=== PATIENT | female | born 1995 | race African-American/Black ===

== ENCOUNTER → 2018-04-22 | Day surgery (SDC) | payer BC ==
--- NOTE | 2018-04-19 09:56 | Diagnostic Imaging Report ---
PROCEDURE: X-RAY CHEST, TWO VIEWS COMPARISON: None. INDICATIONS: PREOPERATIVE CHEST XRAY FOR FOOT SURGERY FINDINGS: LUNGS: No consolidations or edema. PLEURA: No effusions or pneumothorax. HEART & MEDIASTINUM: The heart is within normal size-limits. BONES & SOFT TISSUES: No acute findings. CONCLUSION: No acute thoracic abnormality. Dictated by: Tod Rivas M.D. on 04/19/2018 at 10:04 Electronically approved by: Tod Rivas M.D. on 04/19/2018 at 10:04
[~2018-04-22] MED LIST: ACETAMINOPHEN 1000 MG/100 ML IV ONE; BUPIVACAINE HCL 0.5% INJ 30 ML VIAL INJ ONE; CEFAZOLIN SOD 1 GM VIAL ONE; DEXAMETHASONE SOD PHOS INJ 4 MG/ML VIAL ONE; FENTANYL CITRATE/PF 100MCG/2 ML INJ ONE; LIDOCAINE HCL 2% LOCAL INJ 5 ML SDV VIAL INJ ONE; MIDAZOLAM HCL 2 MG/2 ML VIAL ONE; ONDANSETRON HCL INJ 2 MG/ML VIAL ONE; PROPOFOL IV EMULSION 10 MG/ML 20 ML VIAL ONE; SEVOFLURANE INHAL SOLN 250 ML PEN BTL ONE
--- OUTSIDE RECORDS SUMMARY | 2018-04-22 05:08 | XMS REPORT | Continuity of Care Document ---
Author Author [facility] Interface Address Unknown Phone Unavailable Problems Problem Status Onset Date Classification Date Reported Comments Source Body mass index 25-29 - overweight 10/16/2017 Diagnosis 10/16/2017 [facility] Pharyngitis 10/16/2017 Diagnosis 10/16/2017 [facility] Acute suppurative otitis media without spontaneous rupture of ear drum 10/16/2017 Diagnosis 10/16/2017 [facility] Tuberculosis screening 07/25/2017 Diagnosis 07/25/2017 [facility] No current problems or disability Problem 10/16/2017 [facility] Excessive Cerumen in Ear Canal Problem 07/25/2017 [facility] Otalgia Problem 07/25/2017 [facility] Acute Sinusitis Problem 07/25/2017 [facility] Acute Pharyngitis Problem 07/25/2017 [facility] Acute Upper Respiratory Infection Problem 07/25/2017 [facility] Allergic Rhinitis Problem 07/25/2017 [facility] Medications Medication Details Route Status Patient Instructions Ordering Provider Order Date Source Amoxicillin 875 MG / Clavulanate 125 MG Oral Tablet amoxicillin 875 mg-potassium clavulanate 125 mg tablet Take 1 tablet every 12 hours by oral route around the clock for 7 days. Active [facility] Ibuprofen 800 MG Oral Tablet ibuprofen 800 mg tablet Take 1 tablet 3 times a day by oral route. Active [facility] TriNessa Lo 0.18 mg/0.215 mg/0.25 mg-25 mcg tablet TriNessa Lo 0.18 mg/0.215 mg/0.25 mg-25 mcg tablet Take 1 tablet orally once daily at the same time. Active [facility] Purified Protein Derivative of Tuberculin 50 UNT/ML Injectable Solution [Tubersol] Tubersol 5 tub. unit/0.1 mL intradermal injection solution Inject 0.1 mL by intradermal route. Active [facility] Allergies, Adverse Reactions, Alerts Substance Category Reaction Severity Reaction type Status Date Reported Comments Source Immunizations Immunization Date Given Site Status Last Updated Comments Source Results Order Name Results Value Reference Range Date Interpretation Comments Source RESULT negative 10/16/2017 [facility] Vital Signs Vital Sign Value Date Comments Source Diastolic (mm Hg) 74 10/16/2017 [facility] Height 64 10/16/2017 [facility] Systolic (mm Hg) 120 10/16/2017 [facility] Weight 162 10/16/2017 [facility] Encounters Location Location Details Encounter Type Encounter Number Reason For Visit Attending Provider ADM Date DC Date Status Source [place] - [facility] - [id number] DAVE Tay-C: [address] [place] [address], Ph. [id number] Jacob Singh 07/25/2017 [facility] [place] [facility] - [id number] DAVE Cruz-C: [address] [place] [address], Ph. [id number] Landon Kerr 10/16/2017 [facility] Procedures Procedure Code Date Perfomer Comments Source
--- OUTSIDE RECORDS SUMMARY | 2018-04-22 05:08 | XMS REPORT ---
Author Author [facility] Address Unknown Phone Unavailable Care Team Providers Care Peanut Sorter Name Role Phone Khris LOUIS Unavailable Unavailable Problems This patient has no known problems. Allergies, Adverse Reactions, Alerts This patient has no known allergies or adverse reactions. Medications This patient has no known medications. Results Test Description Test Time Test Comments Text Results Atomic Results Result Comments CHEST 2 VIEWS 2018-04-19 10:04:00 [place] [id number] Patient Name: PIERRE GONSALEZ MR #: [id number] : 1995 Age/Sex: 23/F Req #: [id number] [facility] Physician: Ordered by: RYAN LOUIS DPM Report #: [id number] Location: OR Room/Bed: Procedure: [id number] DX/CHEST 2 VIEWS Exam Date: 04/19/18 Exam Time: 0935 REPORT STATUS: Signed PROCEDURE: X-RAY CHEST, TWO VIEWS COMPARISON: None. INDICATIONS: PREOPERATIVE CHEST XRAY FOR FOOT SURGERY FINDINGS: LUNGS: No consolidations or edema. PLEURA: No effusions or pneumothorax. HEART MEDIASTINUM: The heart is within normal size- limits. BONES SOFT TISSUES: No acute findings. CONCLUSION: No acute thoracic abnormality. Dictated by: Saleem Plaza M.D. on 04/19/2018 at 10:04 Electronically approved by: Saleem Plaza M.D. on 04/19/2018 at 10:04 Dictated By: SALEEM PLAZA MD 1004 Transcribed By: SUZETTE on 04/19/18 1004 COPY TO: RYAN LOUIS DPM
--- OUTSIDE RECORDS SUMMARY | 2018-04-22 05:08 | XMS REPORT | Encounter Summary ---
Author Organization Unknown Address [address] [place] [address] Phone [phone] Reason for Visit Medical Complaint Instructions 1. Acute suppurative otitis media without spontaneous rupture of ear drum ear infection (otitis media): care instructions ibuprofen 800 mg tablet amoxicillin 875 mg-potassium clavulanate 125 mg tablet rapid strep group A, throat 2. Pharyngitis sore throat: care instructions 3. Body mass index 25-29 - overweight eating healthy foods: care instructions A healthy lifestyle: care instructions body mass index: care instructions Discussion Note Pt is in no apparent acute distress; Verbalizes understanding of and agreement with all instructions with no questions at this time. Plan of Care Patient Instructions Take all medications as directed. Follow up with your PCP as needed. Seek additional medical care with new or worsening symptoms, or if symptoms do not resolve in 3-4 days. When to seek urgent help See your doctor or seek Emergency Services immediately if you have a sore throat along with any of the following: Difficulty breathing Skin rash Drooling because you cannot swallow Swelling of the neck or tongue Stiff neck or difficulty opening the mouth Underlying chronic illness/medication that may impair your immune system Pain medication Msfp-mmj-jueaaud pain relievers such as acetaminophen (Tylenol) or a nonsteroidal anti-inflammatory agent such as ibuprofen or naproxen (Motrin or Aleve) have been shown to provide fast and effective relief of sore throat pain. Oral steroids are not routinely used because steroids come with (potentially serious) side effects, the benefit in treating sore throat pain is limited, and yylm-osy-uqssmvs treatments help most patients. Oral rinses Salt-water gargles are an old standby for throat pain. It is not clear that salt water works to relieve pain, but it is unlikely to be harmful. Most recipes suggest 1/4 to 1/2 teaspoon (1.5 to 3.0 g) of salt per one cup (8 ounces or 250 mL) of warm water. Sprays Sprays containing topical anesthetics (eg, benzocaine, phenol) are available to treat sore throat. However, such sprays are no more effective than sucking on hard candy. Lozenges A variety of lozenges (cough drops) containing topical anesthetics are available to treat throat pain or relieve dryness. Lozenges may persist longer in the throat than sprays or gargles and, thus, may be more effective for symptom relief [2]. Other treatments Other treatments that may help with throat pain include sipping warm beverages (eg, honey or lemon tea, chicken soup), cold beverages, or eating cold or frozen desserts (eg, ice cream, popsicles). Alternative therapies Health food stores, vitamin outlets, and internet websites offer alternative treatments for relief of sore throat pain. These types of treatments are not recommend due to the risks of contamination with pesticides/herbicides, inaccurate labeling and dosing information, and a lack of studies showing that these treatments are safe and effective. Return to work/school If you have been diagnosed with strep throat, stay home from work or school until you have completed 24 hours of antibiotics. Within 24 hours of beginning antibiotic treatment, you will feel better and will be less contagious. If you have a sore throat (not diagnosed as strep), you may participate in your usual activities as soon as you feel well, though practical prevention measures such as good hand washing and cough etiquette should be observed. Most facilities such as schools and businesses have internal rules governing return to work after illness. Many require 24 hours of no fever without the use of fever reducers such as acetaminophen or ibuprofen. Check with your job or school to find out when you may return per their rules. Thank you for allowing me to participate in your healthcare! Reminders Provider Appointments None recorded. Lab Rapid Strep Group a, Throat 10/16/2017 [facility] Referral None recorded. Procedures None recorded. Surgeries None recorded. Imaging None recorded. Medications Name Start Date amoxicillin 875 mg-potassium clavulanate 125 mg tablet Take 1 tablet every 12 hours by oral route around the clock for 7 days. ibuprofen 800 mg tablet Take 1 tablet 3 times a day by oral route. TriNessa Lo 0.18 mg/0.215 mg/0.25 mg-25 mcg tablet Take 1 tablet orally once daily at the same time. Medications Administered None recorded. Vitals Height Weight BMI Blood Pressure 5 ft 4 in 162 lbs 27.8 kg/m2 120/74 mm[Hg] Lab Results Date Name Specimen Result Interpretation Description Value Range Status Address Rapid Strep Group a, Throat Result negative [facility]: [address] [place] [address] Allergies Code Code System Name Reaction Severity Status Onset NKDA Problems No Known Problems Procedures None recorded. Vaccine List None recorded. Social History Smoking Status Never Smoker Past Encounters 10/16/2017 Acute Suppurative Otitis Media without Spontaneous Rupture of Ear Drum; Pharyngitis; Body Mass Index 25-29 - Overweight Landon Kerr, [employer]-C: [address] [place] [address], Ph. History of Present Illness Throat-Oral Complaint Reported By: Patient HPI: Location: throat. Quality: sore throat, congested. Severity: moderate. Duration: 3 days. Onset/Timing: gradual. Context: no sick contacts, no foreign travel, non-smoker. Associated Symptoms: no fever, no body aches, no sputum production, no shortness of breath, no wheezing, no change in number of pillows needed to sleep at night, no sweats, no significant weight gain, no significant weight loss, no morning cough, no vomiting, no diarrhea, no rash, no nausea, headache, sore throat Notes: ear pain bilaterally, worse on the left Review of Systems:ROS as noted in the HPI Review of Systems Basic Reported By: Patient Physical Exam Adult Basic Reported By: Patient Constitutional: General Appearance: healthy-appearing, well-nourished, well-developed. Level of Distress: NAD. Ambulation: ambulating normally Psychiatric: Mental Status: active and alert. Orientation: to time, to place, to person Eyes: Lids and Conjunctivae: non-injected, no discharge, no pallor. Pupils: PERRLA. Corneas: grossly intact. EOM: EOMI. Lens: clear. Sclerae: non-icteric Tti-Ursq-Qqljk-Throat: Ears: no lesions on external ear, no outer ear tenderness, EACs clear, TM erythematous, TM bulging; right is clear, normal visualization. Hearing: no hearing loss. Nose: no lesions on external nose, nares patent, no septal deviation, nasal passages clear, no sinus tenderness, no nasal discharge. Lips, Teeth, and Gums: no mouth or lip ulcers. Oropharynx: moist mucous membranes, tonsils not enlarged, erythema Neck: Neck: supple, trachea midline, no masses, FROM. Lymph Nodes: no supraclavicular LAD, anterior cervical LAD. Thyroid: no enlargement, non-tender, no nodules Lungs: Respiratory effort: no dyspnea, no tachypnea, no use of accessory muscles, no intercostal retractions. Auscultation: breath sounds normal Cardiovascular: Heart Auscultation: RRR, no murmurs Neurologic: Gait and Station: normal gait, normal station. Sensation: grossly intact Skin: Inspection and palpation: no rash, no lesions
--- OUTSIDE RECORDS SUMMARY | 2018-04-22 05:08 | XMS REPORT | Encounter Summary ---
Author Organization Unknown Address [address] [place] [address] Phone [phone] Reason for Visit Screening - TB Instructions 1. Tuberculosis screening Tubersol 5 tub. unit/0.1 mL intradermal injection solution PPD (purified protein derivative), skin test - Patient was advised to follow-up with [facility] within 48-72 hours. Discussion Note: None recorded. Patient educational handouts: No information available. Plan of Care Patient Instructions RTC in 48-72 for reading. see vis handout for any questions. Reminders Provider Appointments None recorded. Lab PPD (Purified Protein Derivative), Skin Test 07/25/2017 [facility] Referral None recorded. Procedures None recorded. Surgeries None recorded. Imaging None recorded. Medications Name Start Date Tubersol 5 tub. unit/0.1 mL intradermal injection solution Inject 0.1 mL by intradermal route. Medications Administered Name Date Tubersol 5 tub. unit/0.1 mL intradermal injection solution Inject 0.1 mL by intradermal route. [id number] Vitals None recorded. Lab Results None recorded. Allergies Code Code System Name Reaction Severity Status Onset NKDA Problems Name Status Onset Date Source Excessive Cerumen in Ear Canal Active Encounter Otalgia Active Encounter Acute Sinusitis Active Encounter Acute Pharyngitis Active Encounter Acute Upper Respiratory Infection Active Encounter Allergic Rhinitis Active Encounter Procedures None recorded. Vaccine List None recorded. Social History Smoking Status Never Smoker Past Encounters 07/25/2017 Tuberculosis Screening DAVE Tay-C: [address] [place] [address], Ph. History of Present Illness Screening Request - TB Reported By: Patient Screening Request: BCG No prior BCG vaccination. PPD No past history of postive TB skin test (PPD), No previous severe local reaction to TB skin test (PPD). OTHER No prior vaccines within last month Review of Systems Screening - TB Reported By: Patient Symptoms during past year > 2 weeks, NOT associated with specific illness?: unexplained or low grade fever No fever. night sweats No night sweats. unexplained weight loss > 5 lbs No unexplained weight loss. persistent cough No persistent cough. shortness of breath No shortness of breath. coughing up blood (hemoptysis) No coughing up blood (hemoptysis). unusual fatigue No unusual fatigue. loss of appetite No loss of appetite. swollen neck glands No swollen neck glands Physical Exam Screening Reported By: Patient General Appearance: General: well-developed, well-nourished, no acute distress
--- NOTE | 2018-04-22 08:24 | Operative Report ---
DATE OF PROCEDURE: April 22, 2018 PREOPERATIVE DIAGNOSIS: Left hallux valgus. POSTOPERATIVE DIAGNOSIS: Left hallux valgus. PLANNED PROCEDURE: Left Collin bunionectomy with 1st metatarsal osteotomy and internal fixation, left foot. ANESTHESIA: General with a postoperative block consisting of 10 mL of 0.5% Marcaine plain mixed with 1 mL of dexamethasone phosphate. HEMOSTASIS: Pneumatic thigh tourniquet set at 350 mmHg for a total time of approximately 30 minutes. MATERIALS 1. 2-0 Vicryl. 2. 3-0 Vicryl. 3. 4-0 Monocryl. 4. Two 2 mm x 14 mm Synthes cortical bone screws. ESTIMATED BLOOD LOSS: Less than 10 mL. PATHOLOGY: None. PROCEDURE IN DETAIL: Patient was seen in the preoperative waiting room where the correct procedure and site was identified. The patient was brought to the operating room and placed on the operating table in the supine position. General anesthesia was initiated at this time. A well-padded pneumatic tourniquet was placed about the patient's left thigh. The left foot, ankle and leg was scrubbed, prepped and draped in the usual aseptic manner. The left foot, ankle and leg was exsanguinated with an Esmarch bandage, and the pneumatic thigh tourniquet was inflated to 350 mmHg for a total time approximately 30 minutes. Attention was directed to the dorsomedial aspect of the patient's left foot where a 5 cm curvilinear incision was made directly over the 1st metatarsophalangeal joint. The incision was carried through the subcutaneous tissues them from deeper underlying structures. All vital neurovascular structures were identified and retracted medially and laterally, and all bleeders were cauterized or ligated as deemed necessary. At this point, through the same incision a full lateral release was performed consisting of the deep transverse metatarsal ligament, lateral collateral ligament, as well as the fibular sesamoid ligament. The hallux was put through a range of motion and found to be functioning in a more proper anatomic alignment. Attention was then directed back to the 1st metatarsophalangeal joint where an inverted-L capsulotomy was performed at the level of 1st metatarsophalangeal joint to allow for good visualization of the 1st metatarsal head. Utilizing a McGlamry elevator, the head was freed of capsular ligamentous attachments. Utilizing a sagittal saw, the medial eminence was resected and passed off to the back table. A medial to lateral Chevron osteotomy was performed with the dorsal wing longer to allow for proper fixation. The capital fragment was then transposed laterally approximately 3-5 mm and impacted onto the shaft of the 1st metatarsal. Next, utilizing techniques of AO fixation, two 2 mm x 14 mm cortical bone screws were placed. Fixation site is stable. This was then confirmed via intraoperative fluoroscopy. The wound was then flushed with copious amounts of sterile saline. Capsule and deep tissue were reapproximated with 2-0 Vicryl, subcutaneous tissue with 3-0 Vicryl and skin was closed using a running subcuticular stitch with 4-0 Monocryl. Mastisol and Steri-Strips were used for additional fixation. The dressing was then applied utilizing Adaptic, 4 x 4s, Kerlix, Yazan wrap, and postop shoe. The patient tolerated the procedure and anesthesia well. Patient was transferred to the postoperative recovery unit with vital signs stable and vascular status intact. Patient was monitored there for a short period of time before being sent home with the following written and oral instructions: 1. Keep the dressing clean, dry and tact. 2. The patient is to remain partial weightbearing in a postop shoe and to avoid excessive ambulation until being seen in the office. 3. The patient was given the office number, and instructed to contact us if any problems should arise. Job#: [id number] [place]
[2018-04-22 08:35] VITALS: BP 111/83
== END | disposition home or self-care (01) ==
LOC: OR 05:05
PROVIDERS: ATTEND Podiatrist Foot & Ankle Surgery
DX: M20.12 Hallux valgus (acquired), left foot (principal); Z01.818 Encounter for other preprocedural examination; Z32.02 Encounter for pregnancy test, result negative
CPT/HCPCS: 28295; 71046; 81025; C1713; J0690; J1100; J2001; J2250; J2405